=== PATIENT | male | born 1985 | race Caucasian/White ===

== ENCOUNTER 2022-04-08 12:40 | Emergency (ER) | payer MEDICAID ==
[~2022-04-08] VITALS: Ht 154.9 cm; Wt 87.1 kg
--- NOTE | 2022-04-08 12:50 | NUR ---
PATIENT BIBSELF C/O +SI, PLAN TO HURT SELF. PT IS A/O X 4, RR EVEN AND UNLABORED, NO SOB NOTED, VSS, PT AFEBRILE. PT BELONGINGS TAKEN AND PLACED IN HOSPITAL GOWN, PT PATTED DOWN FROM HEAD TO TOE, WITH RN, EMT AND SECURITY PRESENT. PATIENT TAKEN TO ER BED 18. SITTER AT BEDSIDE. WILL CONTINUE TO MONITOR.
--- NOTE | 2022-04-08 13:03 | NUR ---
COVID SWAB COLLECTED SENT TO LAB
[2022-04-08 13:27] LABS: BASOPHILS % (AUTO) 0.8 % (0.0-2.0); EOSINOPHILS % (AUTO) 1.2 % (0.0-6.0); HEMATOCRIT 39 % (39-51); HEMOGLOBIN 12.9 g/dL (13.5-17.5); LYMPHOCYTES % (AUTO) 37.2 % (20.0-44.0); MEAN CORPUSCULAR HGB CONC 33 g/dl (31.0-36.0); MEAN CORPUSCULAR VOLUME 79 fL (80-96); MONOCYTES # (AUTO) 0.4 K/uL (0.1-1.30); MONOCYTES % (AUTO) 6.4 % (2.0-12.0); NEUTROPHILS % (AUTO) 54.4 % (43.0-81.0); PLATELET COUNT (AUTO) 220 K/uL (150-450); RED BLOOD CELL COUNT(AUTO) 4.92 MIL/uL (4.5-6.0); WHITE BLOOD COUNT (AUTO) 5.5 K/uL (4.3-11.0)
[2022-04-08 13:42] LABS: CALCIUM, SERUM 8.4 mg/dL (8.5-10.1); CARBON DIOXIDE 29 mmol/L (21-32); CHLORIDE 105 mmol/L (98-107); GLUCOSE 91 mg/dL (74-106); POTASSIUM 3.8 mmol/L (3.5-5.1); SODIUM SERUM 141 mmol/L (136-145); UREA NITROGEN, BLOOD 9 mg/dL (7-18)
[2022-04-08 13:59] LABS: ALANINE AMINOTRANSFERASE 22 U/L (12-78); ALBUMIN 3.2 g/dL (3.4-5.0); ALKALINE PHOSPHATASE 95 U/L (46-116); ASPARTATE AMINOTRANSFERASE 12 U/L (15-37); BILIRUBIN,DIRECT 0.1 mg/dL (0.0-0.2); BILIRUBIN,TOTAL 0.2 mg/dL (0.2-1.0); TOTAL PROTEIN, SERUM 7.2 g/dL (6.4-8.2)
[2022-04-08 14:01] LABS: BILIRUBIN,URINE SMALL (NEGATIVE); COLOR,URINE YELLOW (YELLOW); LEUKOCYTE ESTERASE ,URINE NEGATIVE (NEGATIVE); NITRITE, URINE NEGATIVE (NEGATIVE); PROTEIN,URINE NEGATIVE (NEGATIVE); UGLUCOSE NEGATIVE (NEGATIVE)
[2022-04-08 14:09] LABS: ACETAMINOPHEN < 10 ug/ml (10-30); ALCOHOL, BLOOD < 3 mg/dL (0-0)
[2022-04-08 14:23] LABS: BACTERIA,URINE Few /HPF (None Seen); RBC,URINE 0-2 /HPF (0-2); WBC,URINE 0-2 /HPF (0-3)
[2022-04-08 14:24] LABS: CALCIUM OXALATE CRYSTALS,UR Few /HPF (None Seen); SQUAMOUS EPITHELIAL CELL,UR 0-2 /HPF (None Seen); URINE AMORPHOUS URATE Few /HPF (None Seen)
--- NOTE | 2022-04-08 14:58 | NUR ---
FAXED CLINICALS TO [facility]. WILL FAX COVID RESULTS OVER ONCE READY.
--- NOTE | 2022-04-08 14:58 | NUR ---
FAXED CLINICALS TO [facility] INTAKE.
--- NOTE | 2022-04-08 17:25 | NUR ---
CALLED [facility] INTAKE AWAITING FEEDBACK FROM LEO SALE[facility].
[2022-04-08] MEDS ORDERED: MUPIROCIN OINT 2% 22 GM TUBE ONE (18:58)
[2022-04-08] MEDS ORDERED: MUPIROCIN OINT 2% 22 GM TUBE TP ONE (19:00)
--- NOTE | 2022-04-09 | NUR ---
PATIENT STATES HE IS NO LONGER HAVING S/I AND WISHES TO AMA. AMA SIGNED MD MADE AWARE.
[2022-04-09 02:01] VITALS: BP 139/87
== END 2022-04-09 02:02 | disposition left against medical advice (07) ==
LOC: ER 12:45
DX: R45.851 Suicidal ideations (principal); Z20.822 Contact with and (suspected) exposure to COVID-19; Z53.29 Procedure and treatment not carried out because of patient's decision for other reasons
CPT/HCPCS: 36415; 80048; 80076; 80143; 80307; 80320; 81001; 85025; 87426; 99285; C9803; G0480